=== PATIENT | female | born 1950 | race Caucasian/White ===

== ENCOUNTER 2017-04-09 13:57 | Emergency (ER) | payer BC, MEDICARE ==
[2017-04-09] MEDS ORDERED: NS 0.9% 1000 ML* 1,000 ML IV ONE (14:05)
[2017-04-09 14:40] LABS: Hematocrit 38 % (35-47); Hemoglobin 12.7 g/dl (12.0-16.0); Mean Corpuscular HGB Conc 34 g/dl (31-36); Mean Corpuscular Hemoglobin 31 pg (27-31); Mean Corpuscular Volume 91 fL (80-97); Mean Platelet Volume 10 um3 (7.4-10.4); Red Blood Count 4.14 10^6/ul (4.0-5.4); Red Cell Distribution Width 13 % (10.5-15); White Blood Count 4.9 10^3/ul (3.5-10.8)
[2017-04-09 14:58] LABS: Albumin 3.6 g/dL (3.2-5.2); Ammonia 30 mol/L (16-53); BUN/Creatinine Ratio 17.5 (8-20); Calcium 9.1 mg/dL (8.6-10.3); EGFR African American 54.8 (>60); EGFR Non-African American 42.6 (>60); Magnesium 2.1 mg/dL (1.9-2.7); Potassium 3.7 mmol/L (3.5-5.0); Total Bilirubin 0.8 mg/dL (0.2-1.0); Total Protein 6.6 g/dL (6.4-8.9)
[2017-04-09 15:00] LABS: Troponin I 0.01 ng/mL (<0.04)
[2017-04-09 15:05] LABS: B Type Natriuretic Peptide 52 pg/mL
[2017-04-09 15:48] LABS: TSH (Thyroid Stimulating Horm) 1.85 mcIU/mL (0.34-5.60)
[2017-04-09 15:55] LABS: Urine Bilirubin Negative (Negative); Urine Glucose 1+(50 mg/dL) (Negative); Urine Nitrite Negative (Negative)
[2017-04-09 16:08] LABS: Benzodiazepine Urine Screen None Detected (None Detect)
[2017-04-09 16:20] VITALS: BP 154/73
--- NOTE | 2017-04-11 15:17 | ED ---
Kristopher Swain Gabriel, scribed for Dionicio Quach MD on 04/09/17 at 1406 . Syncope/Near Syncope - HPI Summary HPI Summary: This patient is a 66 year old MF BIBA to [facility] s/p syncopal episode [employer]. During the episode there was urinary incontinence and 30-40 second LOC. When EMS arrived on the scene she was pallor, diaphoretic, but alert and oriented. Patient denies ROWELL, double vison, cp, and sob. She did not hit her head on LOC. She had a similar episode a few years ago. - History Of Current Complaint Time Seen by Provider: 04/09/17 14:05 Hx Obtained From: Patient Onset/Duration: Sudden Onset, Resolved Timing: Seconds - 30-40 Context: Loss Of Consciousness Activity At Onset: Unknown Associated Head Trauma: No Associated Signs And Symptoms: Negative - ROWELL, double vision, SOB, and CP, Other - urinary incontinence - Allergies/Home Medications Allergies/Adverse Reactions: Allergies Allergy/AdvReac Type Severity Reaction Status Date / Time No Known Allergies Allergy Verified 04/09/17 14:09 PMH/Surg Hx/FS Hx/Imm Hx Previously Healthy: No Infectious Disease History: Reports: Traveled Outside the [place] in Last 30 Days - [place] Review of Systems Eyes: Negative - double vision Negative: Chest Pain Negative: Shortness Of Breath Positive: incontinence Neurological: Other - LOC Negative: Headache All Other Systems Reviewed And Are Negative: Yes Physical Exam - Summary Physical Exam Summary: VITAL SIGNS: Reviewed. GENERAL: ~Patient is a well-developed and nourished female who is lying comfortable in the stretcher. ~Patient is not in any acute respiratory distress. HEAD AND FACE: No signs of trauma. ~No ecchymosis, hematomas or skull depressions. No sinus tenderness. EYES: PERRLA, EOMI x 2, No injected conjunctiva, no nystagmus. EARS: Hearing grossly intact. Ear canals and tympanic membranes are within normal limits. MOUTH: Oropharynx within normal limits. NECK: Supple, trachea is midline, no adenopathy, no JVD, no carotid bruit, no c- spine tenderness, neck with full ROM. CHEST: Symmetric, no tenderness at palpation LUNGS: Clear to auscultation bilaterally. No wheezing or crackles. CVS: Regular rate and rhythm, S1 and S2 present, no murmurs or gallops appreciated. ABDOMEN: Soft, non-tender. No signs of distention. No rebound no guarding, and no masses palpated. Bowel sounds are normal. EXTREMITIES: FROM in all major joints, no edema, no cyanosis or clubbing. NEURO: Alert and oriented x 3. No acute neurological deficits. Speech is normal and follows commands. SKIN: Dry and warm Triage Information Reviewed: Yes Vital Signs Reviewed: Yes Diagnostics - Laboratory Result Diagrams: 04/09/17 14:26 04/09/17 14:26 Lab Statement: Any lab studies that have been ordered have been reviewed, and results considered in the medical decision making process. - EKG 14:17 Cardiac Rate: NL EKG Rhythm: Sinus Rhythm - at 66 BPM EKG Interpretation: no ST elevations Re-Evaluation - Re-Evaluation First Eval Re-Evaluation Time: 14:52 Change: Unchanged - Explained to the patient the need for a head CT and she refuses to allow one to be taken. Course/Dx Assessment/Plan: This patient is a 66 year old MF BIBA to [facility] s/p syncopal episode. During the episode there was urinary incontinence and 30-40 second LOC. When EMS arrived on the scene she was pallor, diaphoretic, but alert and oriented. Patient denies ROWELL, double vison, cp, and sob. She did not hit her head on LOC. She had a similar episode a few years ago. UA negative for UTI and EKG shows no ST elevations. Patient has refused CXR and CT head to complete work up for syncopal episodes Therefore patient will be signed out AMA. Also the patient refuses admission. - Diagnoses Provider Diagnoses: Syncope Discharge - Discharge Plan Condition: Stable Disposition: AGAINST MEDICAL ADVICE Patient Education Materials: Syncope (ED) Referrals: Natalie Ohara MD [Primary Care Provider] - 3 Days Additional Instructions: Return to emergency department for new or worsening symptoms. The documentation as recorded by the Kristopher parnell Gabriel accurately reflects the service I personally performed and the decisions made by , Dionicio Quach MD.
== END 2017-04-09 16:25 | disposition left against medical advice (07) ==
LOC: ED 13:57
DX: R55 Syncope and collapse (principal); R32 Unspecified urinary incontinence; Z53.21 Procedure and treatment not carried out due to patient leaving prior to being seen by health care provider
CPT/HCPCS: 36415; 80053; 80307; 81003; 82140; 83605; 83735; 83880; 84443; 84484; 85025; 85730; 93005; 96360; 99283